=== PATIENT | female | born 1960 | race Caucasian/White ===

== ENCOUNTER 2024-01-14 13:34 | Emergency (ER) | payer SELFPAY ==
[~2024-01-14] VITALS: Ht 167.6 cm; Wt 105.9 kg
[2024-01-14] MEDS ORDERED: SPIRONOLACTONE50 MG PO (15:37)
[2024-01-14] MEDS ORDERED: LIPITOR20 MG PO (15:38)
[2024-01-14] MEDS ORDERED: DOCUSATE SODIU100 MG PO (15:39)
[2024-01-14] MEDS ORDERED: CARVEDILOL25 MG PO (15:39)
[2024-01-14] MEDS ORDERED: ENTRESTO 97 MG1 EACH PO (15:40)
[2024-01-14] MEDS ORDERED: JARDIANCE10 MG PO (15:41)
[2024-01-14] MEDS ORDERED: HYDRALAZINE HCL50 MG PO (15:41)
[2024-01-14] MEDS ORDERED: PANTOPRAZOLE SO40 M2 PO (15:42)
[2024-01-14] MEDS ORDERED: GAVILYTE-G SO4000 ML PO (15:43)
[2024-01-14] MEDS ORDERED: ALDACTONE50 MG PO (15:51)
[2024-01-14 15:56] VITALS: BP 117/94
== END 2024-01-14 15:58 | disposition home or self-care (01) ==
LOC: ED 13:34
DX: Z76.0 Encounter for issue of repeat prescription (principal); I50.9 Heart failure, unspecified; Z88.6 Allergy status to analgesic agent; Z79.84 Long term (current) use of oral hypoglycemic drugs; Z79.899 Other long term (current) drug therapy
CPT/HCPCS: 99281

== ENCOUNTER 2024-03-17 16:57 | Emergency (ER) | payer SELFPAY ==
[~2024-03-17] VITALS: Ht 167.6 cm; Wt 106.6 kg
[~2024-03-17 16:57] MED LIST: ALDACTONE50 MG PO; CARVEDILOL25 MG PO; DOCUSATE SODIU100 MG PO; ENTRESTO 97 MG1 EACH PO; GAVILYTE-G SO4000 ML PO; HYDRALAZINE HCL50 MG PO; JARDIANCE10 MG PO; LIPITOR20 MG PO; PANTOPRAZOLE SO40 M2 PO; SPIRONOLACTONE50 MG PO
[2024-03-17 17:57] VITALS: BP 151/95
[2024-03-17] MEDS ORDERED: COREG25 MG PO (18:01)
[2024-03-17] MEDS ORDERED: ENTRESTO 97 MG1 EACH PO (18:01)
[2024-03-17] MEDS ORDERED: LIPITOR20 MG PO (18:01)
[2024-03-17] MEDS ORDERED: JARDIANCE10 MG PO (18:01)
== END 2024-03-17 18:09 | disposition home or self-care (01) ==
LOC: ED 16:57
DX: Z76.0 Encounter for issue of repeat prescription (principal); I50.9 Heart failure, unspecified; Z88.8 Allergy status to other drugs, medicaments and biological substances; Z79.899 Other long term (current) drug therapy
CPT/HCPCS: 99281

== ENCOUNTER 2024-09-10 07:10 | Day surgery (SDC) | payer OTHER ==
[2024-09-03 13:55] VITALS: BP 145/77
[~2024-09-10] VITALS: Ht 167.6 cm; Wt 108.6 kg
[~2024-09-10 07:10] MED LIST changes: +COREG25 MG PO; +DAPAGLIFLOZIN10 MG PO; +IBLOOD GLUCOSE TEST STRIP 1 EA TEST VI PRN; +LACTATED RINGER'S 1,000 ML IV SCH; +LIDOCAINE HCL 1% 5 ML SDV INJ ONE; +TUMS300 MG PO; +TYLENOL PM EXS1 EACH PO
[2024-09-10 07:28] VITALS: BP 145/80
[2024-09-10] MEDS ORDERED: LIDOCAINE HCL 2% 5 ML SDV ONE (08:51)
[2024-09-10] MEDS ORDERED: KETAMINE in NS 50 MG/5 ML SYR ONE (08:51)
[2024-09-10] MEDS ORDERED: propofoL 200 MG/20 ML VIAL ONE ×2 (08:51→09:58)
[2024-09-10] MEDS ORDERED: PHENYLEPHRINE HCL 10 MG/ML VIAL ONE (10:16)
--- NOTE | 2024-09-11 11:30 | OR ---
[facility] [address] [facility] [place], [place] [address] Signed DATE OF OPERATION: 09/10/2024 SURGEON: Dimitri Gold DO PREOPERATIVE DIAGNOSES: 1. Refractory gastroesophageal reflux disease. 2. Colon cancer screening. POSTOPERATIVE DIAGNOSES: 1. Refractory gastroesophageal reflux disease. 2. Colon cancer screening. 3. Grade B distal esophagitis. 4. Gastritis, 2 cm hiatal hernia. 5. Polyp at 40 cm and diverticulosis with nonspecific colitis. PROCEDURES PERFORMED: 1. Esophagogastroduodenoscopy with biopsy of the stomach and also GE junction. 2. Colonoscopy with biopsy of polyp at 40 cm. ANESTHESIA: IV sedation. EBL: Minimal. DRAINS: None. COMPLICATION: None. DESCRIPTION OF PROCEDURE: The patient was brought to the GI lab, placed in supine position. After induction of IV sedation through preanesthetized oropharynx and a bite block, Olympus video endoscope was introduced into the mouth directed through the length of esophagus into the distal esophagus. Significant grade B distal esophagitis was noted. No evidence of ulcerations appreciated. Random biopsies were taken of the GE junction and passed off the field. The scope was advanced into the stomach. General exploration was carried out. No lesions or ulceration were noted, but some punctate gastritis was appreciated. Random Helicobacter. The scope was then advanced through the pylorus, 1st and 2nd Electronically Signed By: DIMITRI GOLD DO 09/11/24 1130 PATIENT NAME: JESSICA ARGUELLES CAYLA OPERATIVE REPORT DATE OF : 64 REPORT #: [id number] PHYSICIAN: DIMITRI GOLD DO PCP: ASHLI DAVALOS PA-C REPORT IS CONFIDENTIAL AND NOT TO BE RELEASED WITHOUT AUTHORIZATION [facility] [address] [place], [place] [address] Signed portion of the duodenum essentially unremarkable. Scope was brought back into the stomach, retroflexed and 2 cm sliding hiatal hernia was noted. Scope was placed in neutral position. Stomach was decompressed. Scope was withdrawn. The patient was then placed in left lateral position and padded to the satisfaction of anesthesia. Digital rectal exam was performed with essentially no issues noted. The Olympus video colonoscope was introduced into the rectum through the rectosigmoid, sigmoid, descending colon, transverse colon, ascending colon and into the cecum. This was all carried out under direct visualization. The scope was then slowly withdrawn from the cecum. No intrinsic or extrinsic masses were noted. Some nonspecific colitis was apparent in the cecum, descending colon, transverse colon, otherwise no intrinsic or extrinsic masses were noted in the descending or the ascending and the transverse colon. Scope was brought back past splenic flexure into the descending colon. No intrinsic or extrinsic masses were noted. Some scattered diverticula were noted. The scope was brought back to the sigmoid colon, approximately at 40 cm, 5 broad-based polyps were identified. Multiple biopsies were taken, passed off the field for pathologic review. Satisfactory hemostasis was maintained. Evidence of diverticulosis as well in the sigmoid colon and nonspecific colitis as well. No ulcerations, intrinsic and extrinsic or other masses were noted. The scope was brought back into the rectosigmoid. No evidence of lesions or ulcerations appreciated. Scope was then withdrawn in its entirety. The patient tolerated the procedure well and went to recovery room in satisfactory condition. DO MARLENA Chahal/MODL /[id number] Copies: ~ Electronically Signed By: DIMITRI GOLD DO 09/11/24 1130 PATIENT NAME: JESSICA ARGUELLES OPERATIVE REPORT DATE OF : 64 REPORT #: [id number] PHYSICIAN: DIMITRI GOLD DO PCP: ASHLI DAVALOS PA-C REPORT IS CONFIDENTIAL AND NOT TO BE RELEASED WITHOUT AUTHORIZATION
--- NOTE | 2024-09-15 12:19 | PATH ---
[facility] [address] [place], [place] [address] Signed SPECIMEN(S): A RANDOM STOMACH BIOPSY SPECIMEN(S): B GE JUNCTION SPECIMEN(S): C COLON POLYP AT 40 CM SPECIMEN SOURCE: A. RANDOM STOMACH BIOPSY B. GE JUNCTION C. COLON POLYP AT 40 CM CLINICAL HISTORY: LA grade esophagitis, 2 cm hiatal hernia, gastritis, diverticulosis, polyp at 40 cm, nonspecific colitis. B) biopsy, C) polyp FINAL PATHOLOGIC DIAGNOSIS: A. Stomach, random biopsy: - Moderate chronic active gastritis. - Positive for H. pylori organisms by immunohistochemistry. - Negative for intestinal metaplasia, dysplasia, and malignancy. B. Gastroesophageal junction, biopsy: - Gastroesophageal junctional-type mucosa. - Very scant squamous component with no specific histopathologic abnormality identified. - Glandular component with diffuse moderate chronic inflammation and very slight focal active inflammation. - Positive for rare H. pylori organisms by immunohistochemistry. - Negative for intestinal metaplasia, dysplasia, and malignancy. C. Colon at 40 cm, biopsy: - Colonic mucosa with focal superficial goblet cell hyperplasia. - Multiple levels are examined with no definite polypoid structure identified. - Negative for inflammation, dysplasia, and malignancy. SDL MICROSCOPIC EXAMINATION: Histologic sections of all submitted blocks are examined by light microscopy. These findings, together with the gross examination, support the pathologic diagnosis. GROSS DESCRIPTION: A. The specimen, labeled and designated "Michael Diaz, random stomach biopsy," is received in formalin and consists of two dukes soft tissue fragments, ranging PATIENT NAME: JESSICA DIAZ PATHOLOGY DATE OF : 64 REPORT #: [id number] PHYSICIAN: LUIS FERNANDO ALCARAZ PCP: ASHLI DAVALOS PA-C REPORT IS CONFIDENTIAL AND NOT TO BE RELEASED WITHOUT AUTHORIZATION [facility] [address] [place], [place] [address] Signed from 0.1-0.4 cm. Entirely submitted in (A1). B. The specimen, labeled and designated "Michael Diaz, GE junction," is received in formalin and consists of one dukes soft tissue fragment, 0.5 cm. Entirely submitted in (B1). C. The specimen, labeled and designated "Joe, G, Colon polyp at 40 cm," is received in formalin and consists of one dukes soft tissue fragment, 0.4 cm. Entirely submitted in (C1). AB (under the direct supervision of a pathologist) The Gross Description was prepared using a voice recognition system. The report was reviewed for accuracy; however, sound-alike word errors, addition and/or deletions may occur. If there are any questions about this report, please contact Client Services. ADDITIONAL NOTES: Immunohistochemical and/or in situ hybridization studies if performed in this case included appropriate positive controls that reacted as expected. This test was developed and its performance characteristics determined by [facility]. It has not been cleared or approved by the U.S. Food and Drug Administration. The FDA has determined that such clearance or approval is not necessary. This test is used for clinical purposes. It should not be regarded as investigational or for research. [facility] is certified under the Clinical Laboratory Improvement Amendments of 1988 (CLIA) as qualified to perform high complexity clinical laboratory testing. PERFORMING LABORATORY: Technical component was performed by [facility], [address] [place] [id number] (CLIA# [id number]). Professional interpretation was performed by [facility], [address] [place] [id number] (CLIA#: [id number]). Diagnostician: Carol Ochoa MD Pathologist Electronically Signed 09/15/2024 Copies: PATIENT NAME: JESSICA DIAZ CAYLA PATHOLOGY DATE OF : 64 REPORT #: [id number] PHYSICIAN: LUIS FERNANDO PATHOLOGY PCP: ASHLI DAVALOS PA-C REPORT IS CONFIDENTIAL AND NOT TO BE RELEASED WITHOUT AUTHORIZATION [address] [address] Signed ~ PATIENT NAME: JSESICA DIAZ CAYLA PATHOLOGY DATE OF : 64 REPORT #: [id number] PHYSICIAN: LUIS FERNANDO PATHOLOGY PCP: ASHLI DAVALOS PA-C REPORT IS CONFIDENTIAL AND NOT TO BE RELEASED WITHOUT AUTHORIZATION
== END 2024-09-10 11:15 | disposition home or self-care (01) ==
LOC: DS 07:10
PROVIDERS: ATTEND Surgery
PROC: 0DBN8ZX Excision of Sigmoid Colon, Via Natural or Artificial Opening Endoscopic, Diagnostic (ICD-10-PCS; 2024-09-10)
PROC: 0DB48ZZ Excision of Esophagogastric Junction, Via Natural or Artificial Opening Endoscopic (ICD-10-PCS; principal; 2024-09-10 08:45)
PROC: 0DB68ZZ Excision of Stomach, Via Natural or Artificial Opening Endoscopic (ICD-10-PCS; 2024-09-10 08:45)
DX: Z12.11 Encounter for screening for malignant neoplasm of colon (principal); K21.00 Gastro-esophageal reflux disease with esophagitis, without bleeding; K29.50 Unspecified chronic gastritis without bleeding; B96.81 Helicobacter pylori [H. pylori] as the cause of diseases classified elsewhere; K44.9 Diaphragmatic hernia without obstruction or gangrene; K63.5 Polyp of colon; K57.30 Diverticulosis of large intestine without perforation or abscess without bleeding; Z79.899 Other long term (current) drug therapy
CPT/HCPCS: 00813; 88305; 88342; J2003; J2371; J2704; J3490; J7121